=== PATIENT | female | born 1965 | race Caucasian/White ===

== ENCOUNTER 2018-10-25 07:23 | Inpatient (IN) | payer OTHER ==
[2018-10-25] MEDS ORDERED: Aspirin 81mg Chewable Tab PO STA (07:37)
[2018-10-25] MEDS ORDERED: Aspirin 81mg Chewable Tab ONE (07:42)
--- NOTE | 2018-10-25 07:47 | ED Physician Chart ---
ED Chief Complaint/HPI - Patient Information Date Seen:: 10/25/18 Time Seen:: 07:27 Chief Complaint:: Chest pain since about noon yesterday. History of Present Illness:: Pt came in by private auto because of onset of chest pain since about noon yesterday. Chest pain is characterized as constant, achy, and localized. Pt has had associated palpitation. No dyspnea, lightheadedness, PND, orthopnea, or ankle edema. No cough or fever. Allergies:: Allergies Allergy/AdvReac Type Severity Reaction Status Date / Time No Known Allergies Allergy Verified 10/25/18 07:36 Vitals:: see Nurse Note. Historian:: Patient Family MD/PCP:: Dr. Cobian LMP:: Postmenopausal. 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 Surgical History: Cholecystectomy (in .) Psychiatricy History: None Medication: Reviewed Family Medical History - Family Member Mother History Unknown: Yes ED Physical Exam - Physical Examination General/Constitutional: Awake, Well-developed, well-nourished, Alert, No distress, Non-toxic appearing Other Gen/Cons comments:: Breathes comfortably, speaks clearly, and interacts appropriately. Head: Atraumatic Eyes: Lids, conjuctiva normal, PERRL, EOMI Skin: Nl inspection, No ecchymosis, Well hydrated, No lymphadenopathy ENMT: External ears, nose nl, Nasal exam nl, Oropharynx nl Neck: Nontender, Full ROM w/o pain, No JVD, No nuchal rigidity, No mass Respiratory: Nl effort/Exclusion, Clear to Auscultation, No Wheeze/Rhonchi/Rales Cardio Vascular: RRR, No murmur, gallop, rubs GI: No tenderness/rebounding/guarding, No organomegaly, Normal BS's, Nondistended Extremities: No tenderness or effusion, No edema Neuro/Psych: Alert/oriented (oriented x 3.), Judgement/insight normal, No focal deficits ED Labs/Radiology/EKG Results - Lab Results Results: Laboratory Results - last 24 hr 10/25/18 10/25/18 10/25/18 07:45 07:45 07:45 WBC 6.9 RBC 4.41 Hgb 14.6 Hct 43.8 MCV 99.4 MCH 33.2 H MCHC Differential 33.4 RDW 12.8 Plt Count 279 MPV 9.5 Neutrophils % 50.7 Lymphocytes % 36.3 Monocytes % 7.7 Eosinophils % 4.2 Basophils % 1.1 PT 9.9 INR 0.95 PTT (Actin FS) 24.4 L Sodium 139 Potassium 3.7 Chloride 104 Carbon Dioxide 25.4 Anion Gap 13.3 BUN 19 Creatinine 0.8 Est GFR ( Amer) > 60.0 Est GFR (Non-Af Amer) > 60.0 BUN/Creatinine Ratio 23.8 Glucose 101 Calcium 9.4 Total Bilirubin 0.7 AST 18 ALT 20 Alkaline Phosphatase 68 Troponin I Total Protein 7.4 Albumin 4.5 Globulin 2.9 Albumin/Globulin Ratio 1.6 10/25/18 07:45 WBC RBC Hgb Hct MCV MCH MCHC Differential RDW Plt Count MPV Neutrophils % Lymphocytes % Monocytes % Eosinophils % Basophils % PT INR PTT (Actin FS) Sodium Potassium Chloride Carbon Dioxide Anion Gap BUN Creatinine Est GFR ( Amer) Est GFR (Non-Af Amer) BUN/Creatinine Ratio Glucose Calcium Total Bilirubin AST ALT Alkaline Phosphatase Troponin I 0.01 Total Protein Albumin Globulin Albumin/Globulin Ratio - Radiology Results Results: PCXR: Based on my interpretation, NAD. Official report is pending. - EKG Interpretations EKG Time:: 07:30 Rate & Rhythm: NSR with VR 84 Comments:: No acute ischemic changes. ED Septic Shock - . Is Septic Shock (SBP<90, OR Lactate>4 mmol\L) present?: No ED Reassessment (Disposition) - Reassessment Reassessment:: [id number] Pt has been repeatedly evaluated. Her chest pain has been decreased from 8 to 6 after first sublingual nitroglycerin, 6 to 2 after second sublingual nitroglycern, and her chest pain has been resolved after the third sublingual nitroglycerin. Pt has been put on nitropaste 1 inch topically. 0945 Pt has been stable and chest pain free. EKG, CXR, and lab findings have been reviewed with pt. Management plan has been discussed. 1050 Dr. 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 Case was discussed with Dr. Owusu with pertinent H & P, EKG, CXR and lab findings reviewed. Pt is to be admitted to Telemetry [place] under his care. Reassessment Condition:: Improved - Diagnosis Diagnosis:: Chest pain. R/O NV. Stable and currently asymptomatic. H/O ASHD. H/O dyslipidemia. - Patient Disposition Admitted to:: Telemetry Admitting Medical Physician:: Rachel Owusu Time:: 10:55 Condition at Disposition:: Stable, Improved
[2018-10-25] MEDS ORDERED: NITROGLYCERIN OINT 2% 1 INCH PACKET TP ONE ×2 (07:55→08:02)
--- NOTE | 2018-10-25 08:20 | Diagnostic Imaging Report ---
CHEST X-RAY: AP view INDICATION: pain COMPARISON: None FINDINGS: There is mild elevation of the right hemidiaphragm. There is no focal consolidation or pleural effusions The heart is normal in size. The osseous structures demonstrate no acute abnormalities. IMPRESSION: No focal consolidation identified.
[2018-10-25 08:33] LABS: INR 0.95 (0.5-1.4); PROTHROMBIN TIME (TEST) 9.9 SECONDS (9.5-11.5)
[2018-10-25 08:43] LABS: ALB/GLOB RATIO 1.6 (1.0-1.8); ALBUMIN 4.5 gm/dL (3.7-5.3); ALKALINE PHOSPHATASE 68 U/L (34-104); ANION GAP 13.3 (7.0-16.0); BILIRUBIN,TOTAL 0.7 mg/dL (0.3-1.0); BUN - UREA NITROGEN 19 mg/dL (7-25); CALCIUM SERUM 9.4 mg/dL (8.6-10.3); CARBON DIOXIDE 25.4 mEq/L (21.0-31.0); CHLORIDE 104 mEq/L (98-107); CREATININE - SERUM 0.8 mg/dL (0.6-1.2); GFR AFRICAN-AMERICAN > 60.0 ml/min (>90); GFR NON AFRICAN-AMERICAN > 60.0 ml/min; GLUCOSE 101 mg/dL (70-105); POTASSIUM SERUM 3.7 mEq/L (3.5-5.1); SGOT 18 U/L (13-39); SGPT/ALT 20 U/L (7-52); SODIUM SERUM 139 mEq/L (136-145); TOTAL PROTEIN,SERUM 7.4 gm/dL (6.0-8.3)
[2018-10-25 09:24] LABS: WHITE BLOOD COUNT 6.9 Th/cmm (4.8-10.8)
[2018-10-25 09:25] LABS: HEMATOCRIT 43.8 % (41.0-60); HEMOGLOBIN 14.6 gm/dL (12-16); MEAN CELL VOLUME 99.4 fl (81-100); MEAN CORPUSCULAR HEMOGLOBIN 33.2 pg (27.0-31.0); MEAN CORPUSCULAR HGB CONC 33.4 pg (28.0-36.0); MEAN PLATELET VOLUME 9.5 fl; PLATELET COUNT 279 Th/cmm (150-400); RED BLOOD COUNT 4.41 Mil/cmm (3.80-5.10); RED CELL DISTRIBUTION WIDTH 12.8 % (11.5-20.0)
[2018-10-25 09:26] LABS: % BASOPHILS 1.1 % (0.0-2.0); % EOSINOPHILS 4.2 % (0.0-5.0); % LYMPHOCYTES 36.3 % (20.0-50.0); % MONOCYTES 7.7 % (2.0-10.0); % NEUTROPHILS 50.7 % (40.0-80.0)
[2018-10-25 12:26] VITALS: BP 126/57
[2018-10-25 15:44] LABS: URINE SOURCE CLEAN C
[2018-10-25 15:50] LABS: URINE BILIRUBIN NEGATIVE (NEGATIVE); URINE BLOOD NEGATIVE (NEGATIVE); URINE GLUCOSE (UA) NEGATIVE (NEGATIVE); URINE KETONE NEGATIVE (NEGATIVE); URINE LEUKOCYTE ESTERASE NEGATIVE (NEGATIVE); URINE NITRATE NEGATIVE (NEGATIVE); URINE PH 5.5 (4.6 - 8.0); URINE PROTEIN NEGATIVE (NEGATIVE); URINE UROBILINOGEN 0.2 E.U./dL (0.2 - 1.0)
[2018-10-25 16:13] LABS: URINE CLARITY CLEAR (CLEAR); URINE COLOR YELLOW; URINE MICROSCOPIC INDICATED? YES
[2018-10-25 16:17] LABS: URINE BACTERIA FEW /hpf (NONE SEEN); URINE EPITHELIAL CELLS FEW /lpf (FEW); URINE RBC 0-2 /hpf (0-5); URINE WBC 0-2 /hpf (0-5)
--- NOTE | 2018-10-25 23:11 | History & Physical ---
ADMIT DATE: 10/25/2018 HISTORY OF PRESENT ILLNESS: This patient came to the Emergency Room complaining of chest pain since yesterday noon. The patient said the pain was centrally located, constant, aching localized and also complained of palpitation. The patient had no dyspnea, no lightheadedness, no ankle edema, no cough, no fever, no chills, no rigors and no other problem. No history of prior problem and the patient had no fever, no rash, no headache, no earache, no shortness of breath, had only chest pain, otherwise negative. PAST MEDICAL HISTORY: History of KS in 2015, hyperlipidemia and history of coronary artery disease. She is nonsmoker and nonalcoholic. PAST SURGICAL HISTORY: Cholecystectomy. PHYSICAL EXAMINATION: GENERAL: The patient is alert and oriented, well-developed female, complaining of chest pain. HEAD: Normal. ENT: Normal. NECK: Supple and nontender. LUNGS: Clear. CARDIOVASCULAR SYSTEM: S1 and S2 heard. ABDOMEN: Soft. Bowel sounds are heard. CENTRAL NERVOUS SYSTEM: Grossly normal. LABORATORY DATA: White count was 6.9 and hemoglobin 14.6. Electrolytes were normal. Her initial set of enzymes are okay, cardiac enzymes. Chest x-ray showed no evidence of any pneumonia. The patient's EKG showed normal sinus rhythm. DIAGNOSIS: Acute chest pain, rule out acute coronary syndrome; history of recent KS; status post cholecystectomy; history of hyperlipidemia; history of coronary artery disease and unstable angina. PLAN: I will have Cardiology, Dr. David Monk see the patient. We will do a cardiac workup. I will follow the patient. Note the patient had received three nitroglycerin to relieve the pain. [facility]# [id number]
--- NOTE | 2018-10-26 02:54 | Consultation ---
DATE OF CONSULTATION: 10/25/[address] Owusu. HISTORY OF PRESENT ILLNESS: This is 52-year-old female patient complaining of chest pain and palpitation. Following this, the patient came to the Emergency Room. No history of PND or orthopnea. PAST MEDICAL HISTORY: Coronary artery disease with old myocardial infarction, hyperlipidemia. FAMILY HISTORY: Diabetes. SOCIAL HISTORY: No history of smoking, alcohol abuse. ALLERGIES: None. PHYSICAL EXAMINATION: VITAL SIGNS: Blood pressure 130/80, pulse 70, respirations 20. HEAD: Normocephalic. No lumps or bumps. EYES: Pupils equal, reactive to light. Fundi show AV nicking, sclerae white, conjunctivae pink. NECK: Carotid 2+. Normal upstroke. JVD flat. Thyroid not palpable. Lymph nodes not palpable. CHEST: Shows increased AP diameter. No kyphosis, scoliosis. LUNGS: Bilateral bronchovesicular breath sounds. HEART: PMI fifth intercostal space with lateral to midclavicular line. S1, S2. No S3, S4, soft systolic murmur. ABDOMEN: Soft. Liver, spleen not palpable. No organomegaly. Bowel sounds active. NEUROLOGIC: Unremarkable. EXTREMITIES: Peripheral pulses 2+. No pedal edema. CLINICAL IMPRESSION: Chest pain, palpitation. PLAN: To get troponin level, EKG, echocardiogram. JOB# [id number]
[2018-10-26 04:55] LABS: % BASOPHILS 0.3 % (0.0-2.0); % EOSINOPHILS 1.8 % (0.0-5.0); % LYMPHOCYTES 24.9 % (20.0-50.0); % MONOCYTES 6.4 % (2.0-10.0); % NEUTROPHILS 66.6 % (40.0-80.0); EOSINOPHILE ABSOLUTE 0.1 Th/cmm (0.1-0.4); HEMATOCRIT 42.6 % (41.0-60); HEMOGLOBIN 14.2 gm/dL (12-16); LYMPHOCYTE ABSOLUTE 1.9 Th/cmm (1.5-3.0); MEAN CELL VOLUME 97.2 fl (81-100); MEAN CORPUSCULAR HEMOGLOBIN 32.4 pg (27.0-31.0); MEAN CORPUSCULAR HGB CONC 33.3 pg (28.0-36.0); MEAN PLATELET VOLUME 8.5 fl; MONOCYTE ABSOLUTE 0.5 Th/cmm (0.3-1.0); NEUTROPHILE ABSOLUTE 5.2 Th/cmm (1.8-8.0); PLATELET COUNT 270 Th/cmm (150-400); RED BLOOD COUNT 4.38 Mil/cmm (3.80-5.10); WHITE BLOOD COUNT 7.7 Th/cmm (4.8-10.8)
[2018-10-26 05:42] LABS: ALB/GLOB RATIO 1.5 (1.0-1.8); ALBUMIN 4.3 gm/dL (3.7-5.3); ALKALINE PHOSPHATASE 63 U/L (34-104); ANION GAP 11.4 (7.0-16.0); BILIRUBIN,TOTAL 0.7 mg/dL (0.3-1.0); BUN - UREA NITROGEN 13 mg/dL (7-25); CALCIUM SERUM 9.3 mg/dL (8.6-10.3); CARBON DIOXIDE 25.7 mEq/L (21.0-31.0); CHLORIDE 101 mEq/L (98-107); CHOLESTEROL 147 mg/dL (<200); CREATININE - SERUM 0.8 mg/dL (0.6-1.2); GFR AFRICAN-AMERICAN > 60.0 ml/min (>90); GFR NON AFRICAN-AMERICAN > 60.0 ml/min; GLUCOSE 127 mg/dL (70-105); HDL -HIGH DENSITY LIPOPROTEIN 63 mg/dL (23-92); POTASSIUM SERUM 4.1 mEq/L (3.5-5.1); SGOT 17 U/L (13-39); SGPT/ALT 19 U/L (7-52); SODIUM SERUM 134 mEq/L (136-145); TOTAL PROTEIN,SERUM 7.1 gm/dL (6.0-8.3); TRIGLYCERIDES 142 mg/dL (<150)
[2018-10-26] MEDS ORDERED: ROSUVASTATIN CALCIUM 20 MG PO SCH (09:00)
[2018-10-26] MEDS ORDERED: Aspirin 81mg Chewable Tab PO SCH (09:00)
[2018-10-26] MEDS ORDERED: Non-Formulary Item 1 EA (Metoprolol Succinate [Metoprolol Succinate] 25 MG) PO SCH (09:00)
[2018-10-26] MEDS: Aspirin 81mg Chewable Tab PO SCH (09:04)
--- NOTE | 2018-10-26 10:13 | Internal Medicine Prog Note ---
Internal Medicine Subjective - Subjective Service Date: 10/26/18 (Covering NOTe for DR Owusu.) Patient seen and examined:: with staff Patient is:: awake, verbal, interactive, talking Per staff patient has:: no adverse event Internal Medicine Objective - Results Result Diagrams: 10/26/18 04:55 10/26/18 04:55 Recent Labs: Laboratory Last Values WBC 7.7 Th/cmm (4.8-10.8) 10/26/18 04:55 RBC 4.38 Mil/cmm (3.80-5.10) 10/26/18 04:55 Hgb 14.2 gm/dL (12-16) 10/26/18 04:55 Hct 42.6 % (41.0-60) 10/26/18 04:55 MCV 97.2 fl (81-100) 10/26/18 04:55 MCH 32.4 pg (27.0-31.0) H 10/26/18 04:55 MCHC Differential 33.3 pg (28.0-36.0) 10/26/18 04:55 RDW 12.0 % (11.5-20.0) 10/26/18 04:55 Plt Count 270 Th/cmm (150-400) 10/26/18 04:55 MPV 8.5 fl 10/26/18 04:55 Neutrophils % 66.6 % (40.0-80.0) 10/26/18 04:55 Lymphocytes % 24.9 % (20.0-50.0) 10/26/18 04:55 Monocytes % 6.4 % (2.0-10.0) 10/26/18 04:55 Eosinophils % 1.8 % (0.0-5.0) 10/26/18 04:55 Basophils % 0.3 % (0.0-2.0) 10/26/18 04:55 PT 9.9 SECONDS (9.5-11.5) 10/25/18 07:45 INR 0.95 (0.5-1.4) 10/25/18 07:45 PTT (Actin FS) 24.4 SECONDS (26.0-38.0) L 10/25/18 07:45 Sodium 134 mEq/L (136-145) L 10/26/18 04:55 Potassium 4.1 mEq/L (3.5-5.1) 10/26/18 04:55 Chloride 101 mEq/L (98-107) 10/26/18 04:55 Carbon Dioxide 25.7 mEq/L (21.0-31.0) 10/26/18 04:55 Anion Gap 11.4 (7.0-16.0) 10/26/18 04:55 BUN 13 mg/dL (7-25) 10/26/18 04:55 Creatinine 0.8 mg/dL (0.6-1.2) 10/26/18 04:55 Est GFR ( Amer) > 60.0 ml/min (>90) 10/26/18 04:55 Est GFR (Non-Af Amer) > 60.0 ml/min 10/26/18 04:55 BUN/Creatinine Ratio 16.3 10/26/18 04:55 Glucose 127 mg/dL (70-105) H 10/26/18 04:55 POC Glucose 98 MG/DL (70 - 105) 10/25/18 11:33 Calcium 9.3 mg/dL (8.6-10.3) 10/26/18 04:55 Total Bilirubin 0.7 mg/dL (0.3-1.0) 10/26/18 04:55 AST 17 U/L (13-39) 10/26/18 04:55 ALT 19 U/L (7-52) 10/26/18 04:55 Alkaline Phosphatase 63 U/L (34-104) 10/26/18 04:55 Troponin I < 0.01 ng/mL (0.01-0.05) L 10/26/18 04:55 Total Protein 7.1 gm/dL (6.0-8.3) 10/26/18 04:55 Albumin 4.3 gm/dL (3.7-5.3) 10/26/18 04:55 Globulin 2.8 gm/dL 10/26/18 04:55 Albumin/Globulin Ratio 1.5 (1.0-1.8) 10/26/18 04:55 Triglycerides 142 mg/dL (<150) 10/26/18 04:55 Cholesterol 147 mg/dL (<200) 10/26/18 04:55 LDL Cholesterol Direct 72 mg/dL (75-193) L 10/26/18 04:55 HDL Cholesterol 63 mg/dL (23-92) 10/26/18 04:55 Urine Source CLEAN C 10/25/18 08:30 Urine Color YELLOW 10/25/18 08:30 Urine Clarity CLEAR (CLEAR) 10/25/18 08:30 Urine pH 5.5 (4.6 - 8.0) 10/25/18 08:30 Ur Specific [place] 1.010 (1.005-1.030) 10/25/18 08:30 Urine Protein NEGATIVE mg/dL (NEGATIVE) 10/25/18 08:30 Urine Glucose (UA) NEGATIVE mg/dL (NEGATIVE) 10/25/18 08:30 Urine Ketones NEGATIVE mg/dL (NEGATIVE) 10/25/18 08:30 Urine Blood NEGATIVE (NEGATIVE) 10/25/18 08:30 Urine Nitrate NEGATIVE (NEGATIVE) 10/25/18 08:30 Urine Bilirubin NEGATIVE (NEGATIVE) 10/25/18 08:30 Urine Urobilinogen 0.2 E.U./dL (0.2 - 1.0) 10/25/18 08:30 Ur Leukocyte Esterase NEGATIVE (NEGATIVE) 10/25/18 08:30 Urine RBC 0-2 /hpf (0-5) 10/25/18 08:30 Urine WBC 0-2 /hpf (0-5) 10/25/18 08:30 Ur Epithelial Cells FEW /lpf (FEW) 10/25/18 08:30 Urine Bacteria FEW /hpf (NONE SEEN) 10/25/18 08:30 - Physical Exam Vitals and I&O: Vital Signs Temp 97.2 F 10/26/18 08:00 Pulse 64 10/26/18 09:04 Resp 18 10/26/18 08:00 BP 123/85 10/26/18 09:04 Pulse Ox 92 10/26/18 08:00 Intake & Output 10/25/18 10/26/18 10/26/18 18:59 06:59 18:59 Intake Total 500 Output Total 3 Balance 500 -3 Weight (lbs) 77.111 kg 77.111 kg Intake: Oral 500 Output: Urine 3 Other: # Voids 1 # Bowel Movements 0 Weight Source Bedscale Bedscale Active Medications: Current Medications Aspirin (Aspirin Chewable) 81 mg PO DAILY JIM Stop: 12/25/18 08:59 Last Admin: 06/04/19 09:04 Dose: 81 mg Lorazepam (Ativan) 1 mg IVP Q4HR PRN; Protocol PRN Reason: Anxiety Stop: 12/24/18 23:35 Last Admin: 10/26/18 00:26 Dose: 1 mg Metoprolol Tartrate (Lopressor) 25 mg PO DAILY [facility] Stop: 12/25/18 08:59 Last Admin: 10/26/18 09:04 Dose: 25 mg Nitroglycerin (Nitrostat) 0.4 mg SL Q5MIN PRN PRN Reason: Chest Pain Stop: 12/24/18 23:36 Pantoprazole Sodium (Protonix) 40 mg IVP DAILY PRN PRN Reason: Heartburn Stop: 12/25/18 00:32 Last Admin: 10/26/18 00:41 Dose: 40 mg Simvastatin (Zocor) 10 mg PO DAILY [facility] Stop: 12/25/18 08:59 Last Admin: 10/26/18 09:03 Dose: 10 mg Tramadol HCl (Ultram) 50 mg PO Q6HR PRN PRN Reason: Pain (Mild) Stop: 12/24/18 15:05 Last Admin: 10/25/18 22:38 Dose: 50 mg General: alert, NAD, no weak, no lethargic, no congested, no demented, no vegetative state, no obtunded, no disheveled, no thin, no obese, no bilateral temporal wasting, no cachectic, no edematous, no appears older, no appears younger HEENT: NC/AT, PERRLA, EOMI, anicteric sclerae, throat clear, no thyromegaly, no dry oral mucosa, no craniotomy scar, no thinning hair, no poor dentition Neck: Supple, No JVD, No thyromegaly, +2 carotid pulse wo bruit, no + JVD, no + trach, no mass, no deformity Lungs: CTAB, no congested, no wheezing, no rales, no ronchi, no chest deformity present, no other Cardiovascular: RRR, Normal S1, Normal S2, without murmur, no with murmur, no tachy, no moi Abdomen: soft, non-tender, non-distended, no tender, no distended, no +GT, no + GT - redness, no +GT - discharge, no positive bowel sound, no hepatomegaly, no + fluid wave Extremities: clear, pedal pulses, no edema, no excoriation, no ecchymosis, no rash, no contracture, no gangrene, no clubbing, no cyanosis Neurological: no change, alert, gait stable, no lethargic, no disorganized, no muscle weakness, no unsteady, no unable to follow command, no bedbound, no spastic Internal Medicine Assmt/Plan - Assessment Assessment: 1. Chest pains, r/o ACS. 2. H/o PA, CAD. 3. Hyperlipidemia. - Plan Plan: Continue present treatment. Follow as per Dr David Monk, cardiology consult.
--- NOTE | 2018-10-26 17:08 | General Progress Note ---
Subjective - Review of Systems Service Date: 10/26/18 Subjective: Patient has no complaint of chest pain shortness of breath Objective - Results Result Diagrams: 10/26/18 04:55 10/26/18 04:55 Recent Labs: Laboratory Last Values WBC 7.7 Th/cmm (4.8-10.8) 10/26/18 04:55 RBC 4.38 Mil/cmm (3.80-5.10) 10/26/18 04:55 Hgb 14.2 gm/dL (12-16) 10/26/18 04:55 Hct 42.6 % (41.0-60) 10/26/18 04:55 MCV 97.2 fl (81-100) 10/26/18 04:55 MCH 32.4 pg (27.0-31.0) H 10/26/18 04:55 MCHC Differential 33.3 pg (28.0-36.0) 10/26/18 04:55 RDW 12.0 % (11.5-20.0) 10/26/18 04:55 Plt Count 270 Th/cmm (150-400) 10/26/18 04:55 MPV 8.5 fl 10/26/18 04:55 Neutrophils % 66.6 % (40.0-80.0) 10/26/18 04:55 Lymphocytes % 24.9 % (20.0-50.0) 10/26/18 04:55 Monocytes % 6.4 % (2.0-10.0) 10/26/18 04:55 Eosinophils % 1.8 % (0.0-5.0) 10/26/18 04:55 Basophils % 0.3 % (0.0-2.0) 10/26/18 04:55 PT 9.9 SECONDS (9.5-11.5) 10/25/18 07:45 INR 0.95 (0.5-1.4) 10/25/18 07:45 PTT (Actin FS) 24.4 SECONDS (26.0-38.0) L 10/25/18 07:45 Sodium 134 mEq/L (136-145) L 10/26/18 04:55 Potassium 4.1 mEq/L (3.5-5.1) 10/26/18 04:55 Chloride 101 mEq/L (98-107) 10/26/18 04:55 Carbon Dioxide 25.7 mEq/L (21.0-31.0) 10/26/18 04:55 Anion Gap 11.4 (7.0-16.0) 10/26/18 04:55 BUN 13 mg/dL (7-25) 10/26/18 04:55 Creatinine 0.8 mg/dL (0.6-1.2) 10/26/18 04:55 Est GFR ( Amer) > 60.0 ml/min (>90) 10/26/18 04:55 Est GFR (Non-Af Amer) > 60.0 ml/min 10/26/18 04:55 BUN/Creatinine Ratio 16.3 10/26/18 04:55 Glucose 127 mg/dL (70-105) H 10/26/18 04:55 POC Glucose 98 MG/DL (70 - 105) 10/25/18 11:33 Calcium 9.3 mg/dL (8.6-10.3) 10/26/18 04:55 Total Bilirubin 0.7 mg/dL (0.3-1.0) 10/26/18 04:55 AST 17 U/L (13-39) 10/26/18 04:55 ALT 19 U/L (7-52) 10/26/18 04:55 Alkaline Phosphatase 63 U/L (34-104) 10/26/18 04:55 Troponin I < 0.01 ng/mL (0.01-0.05) L 10/26/18 04:55 Total Protein 7.1 gm/dL (6.0-8.3) 10/26/18 04:55 Albumin 4.3 gm/dL (3.7-5.3) 10/26/18 04:55 Globulin 2.8 gm/dL 10/26/18 04:55 Albumin/Globulin Ratio 1.5 (1.0-1.8) 10/26/18 04:55 Triglycerides 142 mg/dL (<150) 10/26/18 04:55 Cholesterol 147 mg/dL (<200) 10/26/18 04:55 LDL Cholesterol Direct 72 mg/dL (75-193) L 10/26/18 04:55 HDL Cholesterol 63 mg/dL (23-92) 10/26/18 04:55 Urine Source CLEAN C 10/25/18 08:30 Urine Color YELLOW 10/25/18 08:30 Urine Clarity CLEAR (CLEAR) 10/25/18 08:30 Urine pH 5.5 (4.6 - 8.0) 10/25/18 08:30 Ur Specific [place] 1.010 (1.005-1.030) 10/25/18 08:30 Urine Protein NEGATIVE mg/dL (NEGATIVE) 10/25/18 08:30 Urine Glucose (UA) NEGATIVE mg/dL (NEGATIVE) 10/25/18 08:30 Urine Ketones NEGATIVE mg/dL (NEGATIVE) 10/25/18 08:30 Urine Blood NEGATIVE (NEGATIVE) 10/25/18 08:30 Urine Nitrate NEGATIVE (NEGATIVE) 10/25/18 08:30 Urine Bilirubin NEGATIVE (NEGATIVE) 10/25/18 08:30 Urine Urobilinogen 0.2 E.U./dL (0.2 - 1.0) 10/25/18 08:30 Ur Leukocyte Esterase NEGATIVE (NEGATIVE) 10/25/18 08:30 Urine RBC 0-2 /hpf (0-5) 10/25/18 08:30 Urine WBC 0-2 /hpf (0-5) 10/25/18 08:30 Ur Epithelial Cells FEW /lpf (FEW) 10/25/18 08:30 Urine Bacteria FEW /hpf (NONE SEEN) 10/25/18 08:30 - Physical Exam Vitals and I&O: Vital Signs Temp 97.1 F 10/26/18 15:59 Pulse 65 10/26/18 15:59 Resp 18 10/26/18 15:59 BP 119/64 10/26/18 15:59 Pulse Ox 100 10/26/18 15:59 Intake & Output 10/25/18 10/26/18 10/26/18 18:59 06:59 18:59 Intake Total 500 Output Total 3 Balance 500 -3 Weight (lbs) 77.111 kg 77.111 kg Intake: Oral 500 Output: Urine 3 Other: # Voids 1 # Bowel Movements 0 Weight Source Bedscale Bedscale Active Medications: Current Medications Aspirin (Aspirin Chewable) 81 mg PO DAILY JIM Stop: 12/25/18 08:59 Last Admin: 10/26/18 09:04 Dose: 81 mg Lorazepam (Ativan) 1 mg IVP Q4HR PRN; Protocol PRN Reason: Anxiety Stop: 12/24/18 23:35 Last Admin: 10/26/18 00:26 Dose: 1 mg Metoprolol Tartrate (Lopressor) 25 mg PO DAILY JIM Stop: 12/25/18 08:59 Last Admin: 10/26/18 09:04 Dose: 25 mg Nitroglycerin (Nitrostat) 0.4 mg SL Q5MIN PRN PRN Reason: Chest Pain Stop: 12/24/18 23:36 Pantoprazole Sodium (Protonix) 40 mg IVP DAILY PRN PRN Reason: Heartburn Stop: 12/25/18 00:32 Last Admin: 10/26/18 00:41 Dose: 40 mg Simvastatin (Zocor) 10 mg PO DAILY JIM Stop: 12/25/18 08:59 Last Admin: 10/26/18 09:03 Dose: 10 mg Tramadol HCl (Ultram) 50 mg PO Q6HR PRN PRN Reason: Pain (Mild) Stop: 12/24/18 15:05 Last Admin: 10/25/18 22:38 Dose: 50 mg General: Alert, No acute distress HEENT: Mucous membr. moist/pink Neck: Supple, +2 carotid pulse wo bruit Cardiovascular: Regular rate, Normal S1, Normal S2, Systolic murmurs Abdomen: Bowel sounds, Soft, Other (no organomegaly) Extremities: Pulses (normal) Neurological: Normal gait, Normal speech, Strength at 5/5 X4 ext, Normal tone, Cranial nerves 3-12 NL, Reflexes 2+ Assessment/Plan - Problem List Patient Problems: All Active Problems LEFT AXILLA/CHEST PAIN (Acute) - Assessment Assessment: Atypical chest pain Echocardiogram shows ejection fraction 76% mild mitral regurgitation mild tricuspid regurgitation mild pulmonary regurgitation right ventricular systolic pressure 31 mmHg - Plan Plan: Patient okay for discharge
--- NOTE | 2018-10-26 17:51 | Cardiology ---
10/25/2018 PATIENT OF: Dr. Owusu. M-MODE ECHOCARDIOGRAM: Mitral valve, anterior leaflet of mitral valve shows normal excursion, EF velocity. Posterior leaflet of the mitral valve shows normal excursion. Left ventricular posterior wall shows increased thickness, normal excursion. Interventricular septum shows increased thickness, normal excursion, hypertrophy of the left ventricle, ejection fraction 76%. Left atrium normal. Aortic root shows normal dimension, normal excursion of aortic leaflets. CONCLUSION: Hypertrophy of the left ventricle, ejection fraction 76%. 2D ECHO: Long axis view showed normal sized left ventricle with hypertrophy of the left ventricle. Left atrium normal. Aortic root shows normal dimension, normal excursion of aortic leaflets. Short axis view of mitral valve normal. Short axis view of aortic valve normal. Apical four chamber view showed normal sized left ventricle with hypertrophy of the left ventricle, left atrium normal, right ventricular cavity, right atrium normal, no pericardial effusion. CONCLUSION: Hypertrophy of the left ventricle, ejection fraction 76%. Doppler study shows mild to moderate mitral regurgitation, mild tricuspid regurgitation, mild pulmonary regurgitation, right ventricular systolic pressure 31 mmHg. JOB# [id number]
[2018-10-27] MEDS: Aspirin 81mg Chewable Tab PO SCH (08:21)
--- NOTE | 2018-10-27 12:45 | General Progress Note ---
Subjective - Review of Systems Service Date: 10/27/18 Subjective: Patient has no complaint of chest pain shortness of breath Objective - Results Result Diagrams: 10/26/18 04:55 10/26/18 04:55 Recent Labs: Laboratory Last Values WBC 7.7 Th/cmm (4.8-10.8) 10/26/18 04:55 RBC 4.38 Mil/cmm (3.80-5.10) 10/26/18 04:55 Hgb 14.2 gm/dL (12-16) 10/26/18 04:55 Hct 42.6 % (41.0-60) 10/26/18 04:55 MCV 97.2 fl (81-100) 10/26/18 04:55 MCH 32.4 pg (27.0-31.0) H 10/26/18 04:55 MCHC Differential 33.3 pg (28.0-36.0) 10/26/18 04:55 RDW 12.0 % (11.5-20.0) 10/26/18 04:55 Plt Count 270 Th/cmm (150-400) 10/26/18 04:55 MPV 8.5 fl 10/26/18 04:55 Neutrophils % 66.6 % (40.0-80.0) 10/26/18 04:55 Lymphocytes % 24.9 % (20.0-50.0) 10/26/18 04:55 Monocytes % 6.4 % (2.0-10.0) 10/26/18 04:55 Eosinophils % 1.8 % (0.0-5.0) 10/26/18 04:55 Basophils % 0.3 % (0.0-2.0) 10/26/18 04:55 PT 9.9 SECONDS (9.5-11.5) 10/25/18 07:45 INR 0.95 (0.5-1.4) 10/25/18 07:45 PTT (Actin FS) 24.4 SECONDS (26.0-38.0) L 10/25/18 07:45 Sodium 134 mEq/L (136-145) L 10/26/18 04:55 Potassium 4.1 mEq/L (3.5-5.1) 10/26/18 04:55 Chloride 101 mEq/L (98-107) 10/26/18 04:55 Carbon Dioxide 25.7 mEq/L (21.0-31.0) 10/26/18 04:55 Anion Gap 11.4 (7.0-16.0) 10/26/18 04:55 BUN 13 mg/dL (7-25) 10/26/18 04:55 Creatinine 0.8 mg/dL (0.6-1.2) 10/26/18 04:55 Est GFR ( Amer) > 60.0 ml/min (>90) 10/26/18 04:55 Est GFR (Non-Af Amer) > 60.0 ml/min 10/26/18 04:55 BUN/Creatinine Ratio 16.3 10/26/18 04:55 Glucose 127 mg/dL (70-105) H 10/26/18 04:55 POC Glucose 98 MG/DL (70 - 105) 10/25/18 11:33 Calcium 9.3 mg/dL (8.6-10.3) 10/26/18 04:55 Total Bilirubin 0.7 mg/dL (0.3-1.0) 10/26/18 04:55 AST 17 U/L (13-39) 10/26/18 04:55 ALT 19 U/L (7-52) 10/26/18 04:55 Alkaline Phosphatase 63 U/L (34-104) 10/26/18 04:55 Troponin I < 0.01 ng/mL (0.01-0.05) L 10/26/18 04:55 Total Protein 7.1 gm/dL (6.0-8.3) 10/26/18 04:55 Albumin 4.3 gm/dL (3.7-5.3) 10/26/18 04:55 Globulin 2.8 gm/dL 10/26/18 04:55 Albumin/Globulin Ratio 1.5 (1.0-1.8) 10/26/18 04:55 Triglycerides 142 mg/dL (<150) 10/26/18 04:55 Cholesterol 147 mg/dL (<200) 10/26/18 04:55 LDL Cholesterol Direct 72 mg/dL (75-193) L 10/26/18 04:55 HDL Cholesterol 63 mg/dL (23-92) 10/26/18 04:55 Urine Source CLEAN C 10/25/18 08:30 Urine Color YELLOW 10/25/18 08:30 Urine Clarity CLEAR (CLEAR) 10/25/18 08:30 Urine pH 5.5 (4.6 - 8.0) 10/25/18 08:30 Ur Specific [place] 1.010 (1.005-1.030) 10/25/18 08:30 Urine Protein NEGATIVE mg/dL (NEGATIVE) 10/25/18 08:30 Urine Glucose (UA) NEGATIVE mg/dL (NEGATIVE) 10/25/18 08:30 Urine Ketones NEGATIVE mg/dL (NEGATIVE) 10/25/18 08:30 Urine Blood NEGATIVE (NEGATIVE) 10/25/18 08:30 Urine Nitrate NEGATIVE (NEGATIVE) 10/25/18 08:30 Urine Bilirubin NEGATIVE (NEGATIVE) 10/25/18 08:30 Urine Urobilinogen 0.2 E.U./dL (0.2 - 1.0) 10/25/18 08:30 Ur Leukocyte Esterase NEGATIVE (NEGATIVE) 10/25/18 08:30 Urine RBC 0-2 /hpf (0-5) 10/25/18 08:30 Urine WBC 0-2 /hpf (0-5) 10/25/18 08:30 Ur Epithelial Cells FEW /lpf (FEW) 10/25/18 08:30 Urine Bacteria FEW /hpf (NONE SEEN) 10/25/18 08:30 - Physical Exam Vitals and I&O: Vital Signs Temp 97.2 F 10/27/18 11:30 Pulse 70 10/27/18 11:30 Resp 18 10/27/18 11:49 BP 122/76 10/27/18 11:30 Pulse Ox 98 10/27/18 11:30 Intake & Output 10/26/18 10/27/18 10/27/18 18:59 06:59 18:59 Intake Total 460 240 Balance 460 240 Weight (lbs) 77.111 kg 77.111 kg Intake: Oral 460 240 Other: # Voids 1 3 # Bowel Movements 0 0 Weight Source Bedscale Bedscale Active Medications: Current Medications Aspirin (Aspirin Chewable) 81 mg PO DAILY JIM Stop: 12/25/18 08:59 Last Admin: 10/27/18 08:21 Dose: 81 mg Lorazepam (Ativan) 1 mg IVP Q4HR PRN; Protocol PRN Reason: Anxiety Stop: 12/24/18 23:35 Last Admin: 10/26/18 00:26 Dose: 1 mg Metoprolol Tartrate (Lopressor) 25 mg PO DAILY [facility] Stop: 12/25/18 08:59 Last Admin: 10/27/18 08:21 Dose: Not Given Nitroglycerin (Nitrostat) 0.4 mg SL Q5MIN PRN PRN Reason: Chest Pain Stop: 12/24/18 23:36 Pantoprazole Sodium (Protonix) 40 mg IVP DAILY PRN PRN Reason: Heartburn Stop: 12/25/18 00:32 Last Admin: 10/26/18 00:41 Dose: 40 mg Simvastatin (Zocor) 10 mg PO DAILY JIM Stop: 12/25/18 08:59 Last Admin: 10/27/18 08:21 Dose: 10 mg Tramadol HCl (Ultram) 50 mg PO Q6HR PRN PRN Reason: Pain (Mild) Stop: 12/24/18 15:05 Last Admin: 10/27/18 06:07 Dose: 50 mg General: Alert, No acute distress HEENT: Mucous membr. moist/pink Neck: Supple, +2 carotid pulse wo bruit Cardiovascular: Regular rate, Normal S1, Normal S2, Systolic murmurs Abdomen: Bowel sounds, Soft, Other (no organomegaly) Extremities: Pulses (normal) Neurological: Normal gait, Normal speech, Strength at 5/5 X4 ext, Normal tone, Cranial nerves 3-12 NL, Reflexes 2+ Assessment/Plan - Problem List Patient Problems: All Active Problems LEFT AXILLA/CHEST PAIN (Acute) - Assessment Assessment: Atypical chest pain Echocardiogram shows ejection fraction 76% mild mitral regurgitation mild tricuspid regurgitation mild pulmonary regurgitation right ventricular systolic pressure 31 mmHg - Plan Plan: Patient okay for discharge
--- NOTE | 2018-10-27 13:10 | Infectious Disease Prog Note ---
Infectious Disease Subjective - Review of Systems Service Date: 10/27/18 Subjective: There is no new change, no chest pains. no cough no shortness of breath. Infectious Disease Objective - Results Result Diagrams: 10/26/18 04:55 10/26/18 04:55 Recent Labs: Laboratory Last Values WBC 7.7 Th/cmm (4.8-10.8) 10/26/18 04:55 RBC 4.38 Mil/cmm (3.80-5.10) 10/26/18 04:55 Hgb 14.2 gm/dL (12-16) 10/26/18 04:55 Hct 42.6 % (41.0-60) 10/26/18 04:55 MCV 97.2 fl (81-100) 10/26/18 04:55 MCH 32.4 pg (27.0-31.0) H 10/26/18 04:55 MCHC Differential 33.3 pg (28.0-36.0) 10/26/18 04:55 RDW 12.0 % (11.5-20.0) 10/26/18 04:55 Plt Count 270 Th/cmm (150-400) 10/26/18 04:55 MPV 8.5 fl 10/26/18 04:55 Neutrophils % 66.6 % (40.0-80.0) 10/26/18 04:55 Lymphocytes % 24.9 % (20.0-50.0) 10/26/18 04:55 Monocytes % 6.4 % (2.0-10.0) 10/26/18 04:55 Eosinophils % 1.8 % (0.0-5.0) 10/26/18 04:55 Basophils % 0.3 % (0.0-2.0) 10/26/18 04:55 PT 9.9 SECONDS (9.5-11.5) 10/25/18 07:45 INR 0.95 (0.5-1.4) 10/25/18 07:45 PTT (Actin FS) 24.4 SECONDS (26.0-38.0) L 10/25/18 07:45 Sodium 134 mEq/L (136-145) L 10/26/18 04:55 Potassium 4.1 mEq/L (3.5-5.1) 10/26/18 04:55 Chloride 101 mEq/L (98-107) 10/26/18 04:55 Carbon Dioxide 25.7 mEq/L (21.0-31.0) 10/26/18 04:55 Anion Gap 11.4 (7.0-16.0) 10/26/18 04:55 BUN 13 mg/dL (7-25) 10/26/18 04:55 Creatinine 0.8 mg/dL (0.6-1.2) 10/26/18 04:55 Est GFR ( Amer) > 60.0 ml/min (>90) 10/26/18 04:55 Est GFR (Non-Af Amer) > 60.0 ml/min 10/26/18 04:55 BUN/Creatinine Ratio 16.3 10/26/18 04:55 Glucose 127 mg/dL (70-105) H 10/26/18 04:55 POC Glucose 98 MG/DL (70 - 105) 10/25/18 11:33 Calcium 9.3 mg/dL (8.6-10.3) 10/26/18 04:55 Total Bilirubin 0.7 mg/dL (0.3-1.0) 10/26/18 04:55 AST 17 U/L (13-39) 10/26/18 04:55 ALT 19 U/L (7-52) 10/26/18 04:55 Alkaline Phosphatase 63 U/L (34-104) 10/26/18 04:55 Troponin I < 0.01 ng/mL (0.01-0.05) L 10/26/18 04:55 Total Protein 7.1 gm/dL (6.0-8.3) 10/26/18 04:55 Albumin 4.3 gm/dL (3.7-5.3) 10/26/18 04:55 Globulin 2.8 gm/dL 10/26/18 04:55 Albumin/Globulin Ratio 1.5 (1.0-1.8) 10/26/18 04:55 Triglycerides 142 mg/dL (<150) 10/26/18 04:55 Cholesterol 147 mg/dL (<200) 10/26/18 04:55 LDL Cholesterol Direct 72 mg/dL (75-193) L 10/26/18 04:55 HDL Cholesterol 63 mg/dL (23-92) 10/26/18 04:55 Urine Source CLEAN C 10/25/18 08:30 Urine Color YELLOW 10/25/18 08:30 Urine Clarity CLEAR (CLEAR) 10/25/18 08:30 Urine pH 5.5 (4.6 - 8.0) 10/25/18 08:30 Ur Specific [place] 1.010 (1.005-1.030) 10/25/18 08:30 Urine Protein NEGATIVE mg/dL (NEGATIVE) 10/25/18 08:30 Urine Glucose (UA) NEGATIVE mg/dL (NEGATIVE) 10/25/18 08:30 Urine Ketones NEGATIVE mg/dL (NEGATIVE) 10/25/18 08:30 Urine Blood NEGATIVE (NEGATIVE) 10/25/18 08:30 Urine Nitrate NEGATIVE (NEGATIVE) 10/25/18 08:30 Urine Bilirubin NEGATIVE (NEGATIVE) 10/25/18 08:30 Urine Urobilinogen 0.2 E.U./dL (0.2 - 1.0) 10/25/18 08:30 Ur Leukocyte Esterase NEGATIVE (NEGATIVE) 10/25/18 08:30 Urine RBC 0-2 /hpf (0-5) 10/25/18 08:30 Urine WBC 0-2 /hpf (0-5) 10/25/18 08:30 Ur Epithelial Cells FEW /lpf (FEW) 10/25/18 08:30 Urine Bacteria FEW /hpf (NONE SEEN) 10/25/18 08:30 - Physical Exam Vitals and I&O: Vital Signs Temp 97.2 F 10/27/18 11:30 Pulse 70 10/27/18 11:30 Resp 18 10/27/18 11:49 BP 122/76 10/27/18 11:30 Pulse Ox 98 10/27/18 11:30 Intake & Output 10/26/18 10/27/18 10/27/18 18:59 06:59 18:59 Intake Total 460 240 Balance 460 240 Weight (lbs) 77.111 kg 77.111 kg Intake: Oral 460 240 Other: # Voids 1 3 # Bowel Movements 0 0 Weight Source Bedscale Bedscale Active Medications: Current Medications Aspirin (Aspirin Chewable) 81 mg PO DAILY JIM Stop: 12/25/18 08:59 Last Admin: 10/27/18 08:21 Dose: 81 mg Lorazepam (Ativan) 1 mg IVP Q4HR PRN; Protocol PRN Reason: Anxiety Stop: 12/24/18 23:35 Last Admin: 10/26/18 00:26 Dose: 1 mg Metoprolol Tartrate (Lopressor) 25 mg PO DAILY JIM Stop: 12/25/18 08:59 Last Admin: 10/27/18 08:21 Dose: Not Given Nitroglycerin (Nitrostat) 0.4 mg SL Q5MIN PRN PRN Reason: Chest Pain Stop: 12/24/18 23:36 Pantoprazole Sodium (Protonix) 40 mg IVP DAILY PRN PRN Reason: Heartburn Stop: 12/25/18 00:32 Last Admin: 10/26/18 00:41 Dose: 40 mg Simvastatin (Zocor) 10 mg PO DAILY JIM Stop: 12/25/18 08:59 Last Admin: 10/27/18 08:21 Dose: 10 mg Tramadol HCl (Ultram) 50 mg PO Q6HR PRN PRN Reason: Pain (Mild) Stop: 12/24/18 15:05 Last Admin: 10/27/18 06:07 Dose: 50 mg General: no acute distress, well developed, well nourished HEENT: atraumatic, normocephalic, PERRLA, EOMI Neck: supple, no thyromegaly Cardiovascular: S1S2, regular Lungs: clear to auscultation bilaterally, clear to percussion Abdomen: soft, bowel sounds, no tender, no distended, no mass Extremities: no cyanosis, no clubbing, no edema Neurological: awake, alert, oriented Skin: intact Infectious Disease Assmt/Plan - Problem List Patient Problems: All Active Problems LEFT AXILLA/CHEST PAIN (Acute) - Assessment Assessment: 1. Chest pains, resolved. ACS ruled out, 2. H/o SC, CAD. 3. Hyperlipidemia. - Plan Plan: DC patient home.
--- NOTE | 2018-10-27 23:17 | Discharge Summary ---
DATE OF DISCHARGE: 10/27/2018 CHIEF COMPLAINT: Chest pain. HISTORY OF PRESENT ILLNESS AND HOSPITAL COURSE: The patient is a 52-year-old female with a past medical history of GA in 2015, hyperlipidemia, coronary artery disease, presented to ER with substernal chest pain. It was constant and aching in nature. It was associated with palpitation. The patient denies any fever, chills, dizziness, or loss of consciousness. Cardiology consultation was called and cardiac workup was performed and acute coronary syndrome was ruled out. DISCHARGE CONDITION: Stable. DISCHARGE DISPOSITION: Home. DISCHARGE MEDICATION: As per medication reconciliation sheet. DISCHARGE DIAGNOSES: Chest pain, hyperlipidemia, and coronary artery disease. FOLLOW UP: The patient may follow up with Dr. David Monk or Cardiology as per insurance choice. The patient can follow with primary care physician after one week. JOB# [id number] SULMA
== END 2018-10-27 14:40 | disposition home or self-care (01) | DRG 303 ==
LOC: ER 07:23 → TELE 10:53
PROVIDERS: ADMIT Internal Medicine; ATTEND Internal Medicine
DX: I25.118 Atherosclerotic heart disease of native coronary artery with other forms of angina pectoris (principal); E78.5 Hyperlipidemia, unspecified; I08.1 Rheumatic disorders of both mitral and tricuspid valves; Z90.49 Acquired absence of other specified parts of digestive tract
CPT/HCPCS: 36415-UA; 71045-TC; 80053-TC; 80061-TC; 81001-TC; 82948-90; 84484-TC; 85025-TC; 85610-TC; 93005; C9113; J2060; Z7610